=== PATIENT | male | born 1995 | race Two or more races ===

== ENCOUNTER 2022-04-18 08:00 | Emergency (ER) | payer OTHER ==
[~2022-04-18] VITALS: Ht 175.3 cm; Wt 108.9 kg
== END 2022-04-18 11:24 | disposition home or self-care (01) ==
LOC: ER 08:00
DX: R11.10 Vomiting, unspecified (principal); R19.7 Diarrhea, unspecified; A08.8 Other specified intestinal infections; R10.817 Generalized abdominal tenderness